=== PATIENT | male | born 1955 | race Caucasian/White ===

== ENCOUNTER 2017-12-29 10:00 | Outpatient (RCR) | payer BC, SELFPAY | END 2017-12-29 15:00 | disposition home or self-care (01) | LOC: PT 10:00 | PROVIDERS: Family Provider Family Medicine; Visit Provider Orthopaedic Surgery Adult Reconstructive Orthopaedic Surgery | DX: Z47.1 Aftercare following joint replacement surgery (principal); M25.562 Pain in left knee | CPT/HCPCS: 97010; 97014; 97016; 97110; 97124; 97140; 97164; 97760; G0283 ==

== ENCOUNTER → 2018-04-12 07:35 | Outpatient (CLI) | payer BC, SELFPAY ==
[2018-04-12 14:24] LABS: Chol/HDL Ratio 4.4 (1-3.5); Cholesterol 186 mg/dL (140-200); HDL Cholesterol 42 mg/dL (27-67); LDL Cholesterol 124 mg/dL (0-130); Triglycerides 99 mg/dL (30-200); VLDL Cholesterol 20 mg/dL (0-40)
== END ==
PROVIDERS: Visit Provider Internal Medicine Cardiovascular Disease
DX: E78.5 Hyperlipidemia, unspecified (principal)
CPT/HCPCS: 36415; 80061

== ENCOUNTER 2018-06-14 08:18 | Outpatient (RCR) | payer BC, SELFPAY | END 2018-06-14 08:19 | disposition home or self-care (01) | LOC: PT 08:18 | PROVIDERS: Visit Provider Urology | DX: M54.5 Low back pain (principal); M79.604 Pain in right leg; M79.605 Pain in left leg | CPT/HCPCS: 97163 ==

== ENCOUNTER → 2018-07-20 07:46 | Outpatient (CLI) | payer BC, SELFPAY ==
--- NOTE | 2018-07-20 07:52 | MR_ITS ---
MR lumbar spine wo con, MR 3-d myelogram/MRCP HISTORY: PT states RT side low back pain, LT leg pain and numbness X 6 weeks. ITS.REASON: RIGHT-SIDED BACK PAIN ORDERING PHYSICIAN: MICHAEL Hernandez PATIENT AGE: 62 years Comparison: None TECHNIQUE: Standard multiplanar multiecho sequences are performed without contrast. 3-D MIP and myelographic images are also rendered and reviewed FINDINGS: There is normal alignment. The spinal cord is at the L1 level. There is minimal prominence of the central canal of the cord at the T12 level. T11-T12 and T12-L1 show mild degenerative disc disease. L1-L2: Mild degenerative disc disease. L2-L3: Unremarkable. L3-L4: Mild facet and ligamentum flavum hypertrophic change with mild bilateral foraminal narrowing. L4-5: Minimal concentric bulging disc along with facet and ligamentum flavum hypertrophy with mild bilateral foraminal narrowing slightly greater on left. L5-S1: Minimal concentric bulging disc with mild facet and ligamentum flavum hypertrophy with mild bilateral foraminal narrowing. No canal stenosis or extruded herniated disc is evident. IMPRESSION: 1. Mild lumbar spondylosis with mild multilevel degenerative disc disease along with facet and ligamentum flavum hypertrophy with mild foraminal narrowing at multiple levels as detailed above. 2. No canal stenosis or extruded herniated disc. 3. Minimal prominence of the central canal of the spinal cord at T12. This is of question clinical significance. Follow-up suggested to confirm stability
== END ==
PROVIDERS: Visit Provider Physician Assistant Surgical
DX: M54.9 Dorsalgia, unspecified (principal)
CPT/HCPCS: 72148; 76376

== ENCOUNTER → 2020-05-15 07:23 | Outpatient (CLI) | payer MEDICARE, SELFPAY ==
[2020-05-15 14:41] LABS: Alanine Aminotransferase 19 U/L (12-78); Albumin Level 4.2 g/dl (3.5-5.0); Albumin/Globulin Ratio 1.6 (1.1-1.8); Alkaline Phosphatase 60 U/L (38-126); Anion Gap 16.3 mEq/L (5-15); Aspartate Amino Transferase 21 U/L (17-59); Bilirubin,Total 0.3 mg/dl (0.2-1.3); Blood Urea Nitrogen 23 mg/dl (9-20); Calcium 9.3 mg/dl (8.4-10.2); Carbon Dioxide 25 mmol/L (22.0-30.0); Chloride 101 mmol/L (98-107); Chol/HDL Ratio 2.4 (1-3.5); Cholesterol 104 mg/dl (140-200); Estimated Glomerular Filt Rate 113 ml/min (>60); GFR (African American) 137 ML/MIN (>60); Globulin 2.6 g/dL (1.3-3.2); Glucose 148 mg/dl (74-100); HDL Cholesterol 43 mg/dl (40-60); Potassium 4.3 mmoL/L (3.5-5.1); Sodium 138 mmol/L (136-145); Total Protein,Serum 6.8 g/dl (6.3-8.2); Triglycerides 137 mg/dl (30-150); VLDL Cholesterol 27 mg/dL (0-40)
[2020-05-15 14:52] LABS: Direct LDL Cholesterol 42.87 mg/dL (100-129)
[2020-05-15 14:58] LABS: Creatinine,Urine Random 84 mg/dL (Not Estab.)
[2020-05-15 14:59] LABS: Hemoglobin A1C 7.1 % (4.0-6.0)
[2020-05-15 15:12] LABS: Thyroid Stimulating Hormone 6.49 uIU/mL (0.465-4.68)
== END ==
PROVIDERS: Visit Provider Internal Medicine Endocrinology, Diabetes & Metabolism
DX: E11.65 Type 2 diabetes mellitus with hyperglycemia (principal); E78.00 Pure hypercholesterolemia, unspecified; R03.0 Elevated blood-pressure reading, without diagnosis of hypertension; R25.0 Abnormal head movements; Z51.81 Encounter for therapeutic drug level monitoring; Z68.39 Body mass index [BMI] 39.0-39.9, adult
CPT/HCPCS: 36415; 80053; 80061; 82043; 82570; 83036; 84443

== ENCOUNTER → 2020-08-07 10:08 | Outpatient (CLI) | payer MEDICARE, SELFPAY | PROVIDERS: PCP Nurse Practitioner Family; Visit Provider Nurse Practitioner Family | DX: Z03.818 Encounter for observation for suspected exposure to other biological agents ruled out (principal) | CPT/HCPCS: U0003 ==

== ENCOUNTER 2021-01-21 13:00 | Outpatient (RCR) | payer MEDICARE, SELFPAY | END 2021-02-11 15:30 | disposition home or self-care (01) | LOC: PT.CARL 13:00 | PROVIDERS: PCP Nurse Practitioner Family; Visit Provider Orthopaedic Surgery Adult Reconstructive Orthopaedic Surgery | DX: M17.11 Unilateral primary osteoarthritis, right knee (principal); Z96.651 Presence of right artificial knee joint | CPT/HCPCS: 97010; 97014; 97110; 97112; 97116; 97140; 97163; 97164; 97530; G0283 ==

== ENCOUNTER → 2021-10-04 07:23 | Outpatient (CLI) | payer MEDICARE, SELFPAY ==
[2021-10-04 14:32] LABS: Alanine Aminotransferase 14 U/L (12-78); Albumin/Globulin Ratio 1.7 (1.1-1.8); Alkaline Phosphatase 55 U/L (38-126); Aspartate Amino Transferase 20 U/L (17-59); Bilirubin,Total 0.5 mg/dl (0.2-1.3); Blood Urea Nitrogen 21 mg/dl (9-20); Carbon Dioxide 30 mmol/L (22.0-30.0); Chloride 99 mmol/L (98-107); Chol/HDL Ratio 4.1 (1-3.5); Cholesterol 171 mg/dl (140-200); Estimated Glomerular Filt Rate 112 ml/min (>60); GFR (African American) 136 ML/MIN (>60); Globulin 2.4 g/dL (1.3-3.2); Glucose 151 mg/dl (74-100); HDL Cholesterol 42 mg/dl (40-60); Sodium 136 mmol/L (136-145); Total Protein,Serum 6.4 g/dl (6.3-8.2); Triglycerides 151 mg/dl (30-150); VLDL Cholesterol 30 mg/dL (0-40)
[2021-10-04 14:49] LABS: Free T4 (Free Thyroxine) 0.69 ng/dl (0.78-2.19)
[2021-10-04 15:02] LABS: Thyroid Stimulating Hormone 8.72 uIU/mL (0.465-4.68)
[2021-10-04 16:31] LABS: Creatinine,Urine Random 118 mg/dL (Not Estab.); Microalbumin/Creatinine Ratio 104.8
== END ==
PROVIDERS: Visit Provider Physician Assistant
DX: R79.89 Other specified abnormal findings of blood chemistry (principal); E11.65 Type 2 diabetes mellitus with hyperglycemia; Z79.4 Long term (current) use of insulin
CPT/HCPCS: 36415; 80053; 80061; 82043; 82570; 84439; 84443